=== PATIENT | male | born 1965 | race Caucasian/White ===

== ENCOUNTER 2022-08-27 10:50 | Emergency (ER) | payer OTHER, SELFPAY ==
--- NOTE | ~2022-08-27 | XR_ITS ---
EXAMINATION: XR HAND, LEFT CLINICAL INFORMATION: Finger crush. COMPARISON: None TECHNIQUE: PA, lateral, and oblique views of the left hand. FINDINGS: No visible acute fracture, dislocation or subluxation seen. There is mild loss of the DIP joint space with periarticular spurring second digit. Minimal loss of DIP joints 3rd-5th digits is noted. The soft tissues are unremarkable. XR/XR hand LT 2V IMPRESSION: Degenerative arthritic changes DIP joint second through fifth digit with periarticular spurring and soft tissue swelling second digit. No visible acute fracture or dislocation seen.
[2022-08-27 11:04] VITALS: PULSE 93; RESP 18; TEMP 36.8; O2SAT 97; BMI 27.5
--- NOTE | 2022-08-27 14:23 | ED.WOUNDLAC ---
HPI - Wound/Laceration General Chief Complaint: Wound/Laceration Stated Complaint: l hand inj at work Time Seen by Provider: 08/27/22 14:17 Source: patient Mode of arrival: ambulatory Limitations: no limitations History of Present Illness HPI narrative: Patient is a 57-year-old male presents emergency department for evaluation of a left hand injury at work. He is right-hand dominant. 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 It when the tips of his fingers got caught/crushed? Between the pulleys and belts. He was able to stop the machine and quickly removed the hand. Has bruising to the distal tips of 2nd through 3rd digit and sustaining a laceration to the tip of the middle finger from exhaust. Related Data Previous Rx's Medication Instructions Recorded oxycodone 5 mg tablet 5 mg PO Q8H PRN pain #7 tabs 08/27/22 Allergies Allergy/AdvReac Type Severity Reaction Status Date / Time No Known Allergies Allergy Verified 08/27/22 14:40 Review of Systems Review of Systems: Skin/ musculoskeletal: Crush injury/laceration as noted in HPI Yes all other systems are reviewed and are negative PMFSH Past Medical History Attestation statement: The following information was validated with the patient. Source: old records reviewed Social History Social History Advance Directives: No Physical Exam Vital Signs: Vital Signs: Last Vital Signs Temp 98.3 F 08/27/22 11:04 Pulse 93 08/27/22 11:04 Resp 18 08/27/22 11:04 Pulse Ox 97 08/27/22 11:04 O2 Del Method 08/27/22 11:04 BMI result Body Mass Index 27.5 Appearance: Alert.?Oriented to person, place and time. No acute distress.?Normal affect. Eyes: Pupils equal, round and reactive to light.? ENT: Pharynx normal.?? Neck: Normal inspection.? Neck supple.?? CVS: Heart sounds normal. Normal heart rate and rhythm.? Pulses normal.?? Respiratory: No respiratory distress.? Lung sounds clear to auscultation bilaterally?? Abdomen: Soft and non-tender. Normoactive bowel sounds. No pulsatile mass.?? Skin: Skin warm and dry.? Normal skin color.? 2 cm linear laceration with irregular edges to dorsal aspect of left 3rd DIP, bleeding controlled, held in extension, decreased flexion at DIP, cap refill to all digits of the left hand < 3 seconds Neuro: Moves all extremities spontaneously. Sensation intact bilaterally. Ambulates with normal steady gait. Course Course Course Narrative: Patient is a 57-year-old [id number] male presenting for traumatic left hand pain status post crush injury at work. Localized swelling and bruising over 2nd through 4th DIP. XR reveals no acute fracture or dislocation. There is degenerative arthritic changes to the DIP joint 2nd and 5th digit, periarticular spurring and soft tissue swelling in the 2nd digit. The 3rd digit has a laceration over the DIP, requiring suture for closure, finger is held in extension, able to flex the finger, though decreased flexion at DIP. Laceration repaired under aseptic technique, digital block with lidocaine, cleanse with normal saline, 3 sutures placed, patient tolerated procedure well. Tdap updated. He is currently on Augmentin for an ear infection, has 7 days left to complete, no indication for additional prophylactic antibiotic coverage at this time. Advised outpatient follow-up with primary care provider, he is not from this area, advised to speak with his primary care provider/local urgent care/emergency department for suture removal in 8-10 days. Medications Administered Discontinued Medications Generic Name Dose Route Start Last Admin Trade Name Freq PRN Reason Stop Dose Admin Diphtheria/Tetanus/Acell Pertussis 0.5 ml 08/27/22 14:40 08/27/22 14:47 Diphth,Pertus(Acell),Tet Adult 0.5 Ml Syringe IM 08/27/22 14:41 0.5 ml .ONCE ONE Administration Lidocaine HCl 5 ml 08/27/22 14:40 08/27/22 14:48 Lidocaine Hcl 1 % Mpf 5 Ml Vial SUBCUT 08/27/22 14:41 5 ml ONCE ONE Administration MDM - Wound/Laceration Medical Records Attestation: I reviewed the patient's medical records. 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 ? No visible acute fracture or dislocation seen. Procedures Laceration Laceration 1: Site: hand (left 3rd digit) Side (If applicable): left Size (cm): 2 Description: linear Depth: simple, single layer Local Anesthetic: lidocaine 1% Amount of anesthesia used (mL): 5 Pre-repair: wound explored, irrigated extensively and deep structures intact Skin layer closed with: nylon Size (cm): 5-0 Number of sutures: 3 Technique: simple, interrupted Discharge Plan Discharge Clinical Impression: Laceration Patient Disposition: Home, Self-Care Instructions: Finger Laceration (ED) Additional Instructions: You can take ibuprofen 200 mg, 3 tablets (600mg) every 6-8 hours as needed for pain, in addition to Tylenol 500 mg, 2 tablets (1,000mg) every 4-6 hours as needed for pain, but not to exceed 3 doses daily (3,000mg).? Additional prescription for oxycodone sent to pharmacy to use as needed for severe pain. This is an opiate, may be addictive, should not drive, drink alcohol, or operate machinery while taking this medication. Continue taking your antibiotics as currently prescribed for ear infection, this should also cover potential bacterial infections to the wound. Re-evaluation is warranted if you develop worsening pain, redness, swelling, pus-like drainage, or any new or worsening symptoms or concerns 3 sutures placed to the finger will need to be removed in 8-10 days. Prescriptions: New oxycodone 5 mg tablet 5 mg PO Q8H PRN (Reason: pain) Qty: 7 0RF Rx Instructions: Partial Fill upon patient request. Referrals: Physician,Nonstaff [Primary Care Provider] - Stand Alone Forms: Work/School Release Interventions: ED Discharge Assessment Last Done: 08/27/22 15:46 Discharge Date/Time: 08/27/22 15:46
[2022-08-27] MEDS: Diphth,Pertus(ACell),Tet Adult 0.5 ML SYRINGE IM (14:47)
[2022-08-27] MEDS: Lidocaine HCl 1 % MPF 5 ML VIAL SUBCUT (14:48)
== END 2022-08-27 15:46 | disposition home or self-care (01) ==
PROVIDERS: Emergency Provider Emergency Medicine
DX: S61.213A Laceration without foreign body of left middle finger without damage to nail, initial encounter (principal); W31.89XA Contact with other specified machinery, initial encounter; Y93.89 Activity, other specified; Y92.511 Restaurant or cafe as the place of occurrence of the external cause; Y99.0 Civilian activity done for income or pay
CPT/HCPCS: 12001; 73120; 90471; 90715; 99282; 99284